=== PATIENT | female | born 1960 | race Caucasian/White ===

== ENCOUNTER 2018-06-06 14:11 | Emergency (ER) | payer OTHER ==
--- NOTE | 2018-06-06 15:05 | Emergency Department Report ---
Blank Doc - Documentation Documentation: 58 y o female presents to ED complaining of prod cough, difficulty to breathe x 2 weeks pmh of HTN,DM on meds cxr ordered [facility] evaluate
--- NOTE | 2018-06-06 16:26 | XRay Report ---
PROCEDURE: XR CHEST ROUTINE 2V TECHNIQUE: Frontal and lateral views of the chest HISTORY: cough COMPARISONS: None. FINDINGS: The cardiomediastinal silhouette is normal in appearance. The lungs are clear without focal consolida tion. No pleural effusion or pneumothorax. No acute bony or soft tissue abnormality. IMPRESSION: No acute cardiopulmonary disease. This document is electronically signed by Lucy Delgadillo MD., June 06 2018 04:24:05 PM ET
--- NOTE | 2018-06-06 17:41 | Emergency Department Report ---
- General Chief Complaint: Upper Respiratory Infection Stated Complaint: COUGH Time Seen by Provider: 06/06/18 14:32 Source: patient Mode of arrival: Ambulatory Limitations: Language Barrier - History of Present Illness MD Complaint: cough, rhinorrhea, nasal congestion -: Gradual, week(s) (2) Severity: mild Quality: dull Consistency: constant Improves With: nothing Worsens With: nothing Associated Symptoms: rhinorrhea, nasal congestion, sore throat, cough. denies: myalgias, diaphoresis, headache, chest pain, shortness of breath, abdominal pain, vomiting, diarrhea, right sweats, weight loss, epistaxis, hoarseness - Related Data Previous Rx's Medication Instructions Recorded Last Taken Type ALBUTEROL Inhaler (OR & NICU) 1 puff IH Q4-6H PRN #1 inha 06/06/18 Unknown Rx [ProAir HFA Inhaler] Amoxicillin 500 mg PO QID #40 capsule 06/06/18 Unknown Rx guaiFENesin/CODEINE [Robitussin AC] 5 ml PO Q6H PRN #120 ml 06/06/18 Unknown Rx predniSONE [Deltasone] 50 mg PO QDAY #5 tab 06/06/18 Unknown Rx Allergies Allergy/AdvReac Type Severity Reaction Status Date / Time No Known Allergies Allergy Unverified 06/06/18 14:16 ED Review of Systems ROS: Stated complaint: COUGH Other details as noted in HPI Constitutional: denies: chills, fever Eyes: denies: eye pain, eye discharge, vision change ENT: denies: ear pain, throat pain Respiratory: cough. denies: shortness of breath, wheezing Cardiovascular: denies: chest pain, palpitations Endocrine: no symptoms reported Gastrointestinal: denies: abdominal pain, nausea, diarrhea Genitourinary: denies: urgency, dysuria, discharge Musculoskeletal: denies: back pain, joint swelling, arthralgia Skin: denies: rash, lesions Neurological: denies: headache, weakness, paresthesias Psychiatric: denies: anxiety, depression Hematological/Lymphatic: denies: easy bleeding, easy bruising ED Past Medical Hx - Past Medical History Previous Medical History?: Yes Hx Hypertension: Yes Hx Diabetes: Yes Hx Dementia: Yes Additional medical history: CHOLESTEROL - Surgical History Past Surgical History?: No - Social History Smoking Status: Never Smoker Substance Use Type: None - Medications Home Medications: Home Medications Medication Instructions Recorded Confirmed Last Taken Type ALBUTEROL Inhaler (OR & NICU) 1 puff IH Q4-6H PRN #1 inha 06/06/18 Unknown Rx [ProAir HFA Inhaler] Amoxicillin 500 mg PO QID #40 capsule 06/06/18 Unknown Rx guaiFENesin/CODEINE [Robitussin AC] 5 ml PO Q6H PRN #120 ml 06/06/18 Unknown Rx predniSONE [Deltasone] 50 mg PO QDAY #5 tab 06/06/18 Unknown Rx ED Physical Exam - General Limitations: Language Barrier General appearance: alert, in no apparent distress - Head Head exam: Present: atraumatic, normocephalic - Eye Eye exam: Present: normal appearance, PERRL, EOMI. Absent: scleral icterus, conjunctival injection Pupils: Present: normal accommodation - ENT ENT exam: Present: normal exam, normal orophraynx, mucous membranes moist, TM's normal bilaterally, other (nasal congestion and swelling. Sinus pressure) - Neck Neck exam: Present: normal inspection - Respiratory Respiratory exam: Present: normal lung sounds bilaterally, rhonchi. Absent: respiratory distress, chest wall tenderness, accessory muscle use, decreased breath sounds - Cardiovascular Cardiovascular Exam: Present: regular rate, normal rhythm. Absent: systolic murmur, diastolic murmur, rubs, gallop - GI/Abdominal GI/Abdominal exam: Present: soft, normal bowel sounds. Absent: tenderness, guarding, hyperactive bowel sounds, organomegaly, mass, bruit - Extremities Exam Extremities exam: Present: normal inspection, full ROM, normal capillary refill - Back Exam Back exam: Present: normal inspection, full ROM. Absent: CVA tenderness (R), CVA tenderness (L), paraspinal tenderness, vertebral tenderness - Neurological Exam Neurological exam: Present: alert, oriented X3, CN II-XII intact, normal gait - Psychiatric Psychiatric exam: Present: normal affect, normal mood - Skin Skin exam: Present: warm, dry, intact, normal color. Absent: rash ED Course Vital Signs 06/06/18 16:22 Temperature 100.0 F H Pulse Rate 96 H Respiratory 18 Rate Blood Pressure 166/97 [Left] O2 Sat by Pulse 97 Oximetry Critical care attestation.: If time is entered above; I have spent that time in minutes in the direct care of this critically ill patient, excluding procedure time. ED Disposition Clinical Impression: Cough, URI (upper respiratory infection), Sore throat Disposition: DC-01 TO HOME OR SELFCARE Is pt being admited?: No Does the pt Need Aspirin: No Condition: Stable Instructions: Cold Symptoms (ED), Acute Cough (ED) Referrals: EL MART MD [Primary Care Provider] - 3-5 Days
[2018-06-06 18:09] VITALS: BP 154/92
== END 2018-06-06 18:09 | disposition home or self-care (01) ==
LOC: ED 14:11
DX: R05 Cough (principal); J06.9 Acute upper respiratory infection, unspecified; J02.9 Acute pharyngitis, unspecified; I10 Essential (primary) hypertension; E11.9 Type 2 diabetes mellitus without complications; E78.00 Pure hypercholesterolemia, unspecified; F03.90 Unspecified dementia, unspecified severity, without behavioral disturbance, psychotic disturbance, mood disturbance, and anxiety
CPT/HCPCS: 71046; 99283

== ENCOUNTER 2018-07-23 13:45 | Inpatient (IN) | payer OTHER ==
[2018-07-23] MEDS ORDERED: ASPIRIN PO ONE (14:18)
--- NOTE | 2018-07-23 14:20 | Emergency Department Report ---
Chief Complaint: Chest Pain Stated Complaint: CHEST PAIN Time Seen by Provider: 07/23/18 14:16 - HPI History of Present Illness: This is a 58 y.o. F. that presents to the ER with chest pain x 2 days. Reports pressure that is intermittent. PMH HTN and DM - Exam Vital Signs: Vital Signs 07/23/18 14:16 Temperature 97.5 F L Pulse Rate 69 Respiratory 20 Rate Blood Pressure 143/97 O2 Sat by Pulse 100 Oximetry MSE screening note: Focused history and physical exam performed. Due to findings the following was ordered: This initial assessment/diagnostic orders/clinical plan/treatment(s) is/are subject to change based on patient's health status, clinical progression and re- assessment by fellow clinical providers in the ED. Further treatment and workup at subsequent clinical providers discretion. Patient/guardians urged not to elope from the ED as their condition may be serious if not clinically assessed and managed. Initial orders include: 1- Patient sent to ACC for further evaluation and treatment 2- Labs, ekg, and CXR ED Disposition for MSE Condition: Stable
[2018-07-23 14:47] LABS: Basophils # (Auto) 0.1 K/mm3 (0.0-0.1); Basophils % (Auto) 0.8 % (0.0-1.8); Eosinophils # (Auto) 0.2 K/mm3 (0.0-0.4); Hematocrit 40.1 % (30.3-42.9); Hemoglobin 13.5 gm/dl (10.1-14.3); Mean Corpuscular HGB Conc 34 % (30-34); Mean Corpuscular Volume 95 fl (79-97); Monocytes # (Auto) 0.6 K/mm3 (0.0-0.8); Monocytes % (Auto) 8.9 % (0.0-7.3); Platelet Count 249 K/mm3 (140-440); Red Blood Count 4.23 M/mm3 (3.65-5.03); Red Cell Distribution Width 12.9 % (13.2-15.2)
[2018-07-23 15:04] LABS: BUN/Creatinine Ratio 22; Blood Urea Nitrogen 11 mg/dL (7-17); Calcium 9.3 mg/dL (8.4-10.2); Hemolysis Index 9
--- NOTE | 2018-07-23 15:11 | XRay Report ---
ROUTINE CHEST, TWO VIEWS: HISTORY: chest pain. The trachea, heart, mediastinal contour, lung batres and bony thorax are unremarkable. IMPRESSION: Unremarkable chest x-ray. No change since 06/06/18.
--- NOTE | 2018-07-23 15:34 | Emergency Department Report ---
ED Chest Pain HPI - General Chief Complaint: Chest Pain Stated Complaint: CHEST PAIN Time Seen by Provider: 07/23/18 14:16 Source: family, systems analyst Mode of arrival: Ambulatory Limitations: Language Barrier - History of Present Illness Initial Comments: 58-year-old female presents to ED with complaint of chest pain 2 days. Pain is located in the left chest, described as a pressure-like pain, nonradiating. He reports mild shortness of breath and cough. Denies fever, leg pain, or swelling. No associated nausea, vomiting, diaphoresis. Patient reports history of hypertension, diabetes, hypercholesterolemia. No history of stress test in the past. MD Complaint: chest pain -: days(s) (2) Onset: during rest Pain Location: left chest Pain Radiation: none Severity: moderate Quality: pressure Consistency: intermittent Improves With: nothing Worsens With: nothing re: dyspnea. denies: nausea, vomting, diaphoresis Other Symptoms: cough. denies: leg swelling Treatments Prior to Arrival: aspirin - Related Data Home Medications Medication Instructions Recorded Confirmed Last Taken Lisinopril [Zestril TAB] 10 mg PO QDAY 07/23/18 07/23/18 07/23/18 Metformin HCl [Glucophage] 1,000 mg PO BID 07/23/18 07/23/18 07/23/18 Pravastatin [Pravachol] 40 mg PO QHS 07/23/18 07/23/18 07/23/18 Previous Rx's Medication Instructions Recorded Last Taken Type ALBUTEROL Inhaler (OR & NICU) 1 puff IH Q4-6H PRN #1 inha 06/06/18 07/23/18 Rx [ProAir HFA Inhaler] Allergies Allergy/AdvReac Type Severity Reaction Status Date / Time No Known Allergies Allergy Verified 07/23/18 14:00 Heart Score - HEART Score History: Slightly suspicious EKG: Normal Age: 45-65 Risk factors: > 3 risk factors or hx of atherosclerotic disease Troponin: < normal limit HEART Score: 3 ED Review of Systems ROS: Stated complaint: CHEST PAIN Other details as noted in HPI Comment: All other systems reviewed and negative Constitutional: denies: chills, fever Respiratory: cough, shortness of breath Cardiovascular: chest pain Gastrointestinal: denies: nausea, vomiting Musculoskeletal: other (denies leg pain and swelling) ED Past Medical Hx - Past Medical History Hx Hypertension: Yes Hx Diabetes: Yes Hx Dementia: Yes Additional medical history: CHOLESTEROL - Social History Smoking Status: Never Smoker Substance Use Type: None - Medications Home Medications: Home Medications Medication Instructions Recorded Confirmed Last Taken Type ALBUTEROL Inhaler (OR & NICU) 1 puff IH Q4-6H PRN #1 inha 06/06/18 07/23/18 07/23/18 Rx [ProAir HFA Inhaler] Lisinopril [Zestril TAB] 10 mg PO QDAY 07/23/18 07/23/18 07/23/18 History Metformin HCl [Glucophage] 1,000 mg PO BID 07/23/18 07/23/18 07/23/18 History Pravastatin [Pravachol] 40 mg PO QHS 07/23/18 07/23/18 07/23/18 History ED Physical Exam - General Limitations: Language Barrier General appearance: alert, in no apparent distress - Head Head exam: Present: atraumatic, normocephalic - Eye Eye exam: Present: normal appearance - ENT ENT exam: Present: mucous membranes moist - Neck Neck exam: Present: normal inspection - Respiratory Respiratory exam: Present: normal lung sounds bilaterally. Absent: respiratory distress - Cardiovascular Cardiovascular Exam: Present: regular rate, normal rhythm - GI/Abdominal GI/Abdominal exam: Present: soft. Absent: distended, tenderness - Extremities Exam Extremities exam: Present: normal inspection. Absent: pedal edema, calf tenderness - Neurological Exam Neurological exam: Present: alert, oriented X3, CN II-XII intact. Absent: motor sensory deficit - Psychiatric Psychiatric exam: Present: normal affect, normal mood - Skin Skin exam: Present: warm, dry, intact, normal color ED Course Vital Signs 07/23/18 07/23/18 14:16 16:04 Temperature 97.5 F L Pulse Rate 69 Respiratory 20 16 Rate Blood Pressure 143/97 O2 Sat by Pulse 100 Oximetry ED Medical Decision Making - Lab Data Result diagrams: 07/23/18 14:27 07/23/18 14:27 - EKG Data -: EKG Interpreted by Fl EKG shows normal: sinus rhythm, axis, intervals, QRS complexes, ST-T waves Rate: normal - EKG Data Interpretation: no acute changes - Radiology Data Radiology results: report reviewed, image reviewed - Medical Decision Making 58 yo F w/ hx of HTN, diabetes, hypercholesterolemia presents to ED with 2 day hx of intermittent chest pain. EKG unremarkable, trop negative, CXR normal. Pt given aspirin by EMS. No chest pain at this time. Due to risk factors, will admit for further workup. - Differential Diagnosis ACS, pneumonia, Critical Care Time: Yes Critical care time in (mins) excluding proc time.: 35 Critical care attestation.: If time is entered above; I have spent that time in minutes in the direct care of this critically ill patient, excluding procedure time. Critical Care Time: 35 min ED Disposition Clinical Impression: Chest pain Disposition: DC-09 OP ADMIT IP TO THIS HOSP Is pt being admited?: Yes Condition: Stable Instructions: Chest Pain (ED) Referrals: EL MART MD [Primary Care Provider] - 3-5 Days Time of Disposition: 15:51
[2018-07-23] MEDS ORDERED: PROVENTIL IH PRN (15:45)
[2018-07-23] MEDS ORDERED: NITROSTAT SL PRN (15:45)
[2018-07-23] MEDS ORDERED: BABY ASPIRIN PO STA (15:45)
[2018-07-23] MEDS ORDERED: ZOFRAN IV PRN (15:45)
[2018-07-23] MEDS ORDERED: TYLENOL PO PRN (15:45)
[2018-07-23] MEDS ORDERED: SODIUM CHLORIDE FLUSH SYRINGE 10 ML IV PRN ×2 (15:45)
--- NOTE | 2018-07-23 15:55 | History and Physical Report ---
History of Present Illness Chief complaint: My chest hurts History of present illness: 58 YO Female with HTN, HLD, DM, Dementia presents to ED for evaluation. Pt states that she has experienced pain in her chest over the past 2 days with worsening symptoms over the past 12 hours. Pt states that pain is 5-7/10, intermittent, localized to the left chest, crushing in nature, not worsened with exertion, not relieved with rest, associated with shortness of breath as dry cough. Pt acknowledges dypsnea with exertion, decreased exercise tolerance. EMS notified, and upon arrival the patient was found to be in distress. Pt transported to [facility]. Pt seen and evaluated in ED. Pt seen and evaluated in ED and found to have Angina as well as symptoms consistent with Diastolic CHF. Pt admitted to telemetry. Cardiology consulted in ED. Pt denies fever, chills, palpitations, NVD, Trauma, BRBPR, productive cough, prolonged travel/immobility, unilateral leg swelling, calf pain, individual/family history of DVT/PE/Blood Clotting Disorders, skin rash, or recent ill contacts. No prior admissions for review. All listed medication reconciled at time of admission. Past History Past Medical History: diabetes, hypertension, hyperlipidemia Past Surgical History: No surgical history, Other (reviewed) Social history: single, lives with family. denies: smoking, alcohol abuse, prescription drug abuse Family history: hypertension Medications and Allergies Allergies Allergy/AdvReac Type Severity Reaction Status Date / Time No Known Allergies Allergy Verified 07/23/18 14:00 Home Medications Medication Instructions Recorded Confirmed Last Taken Type ALBUTEROL Inhaler (OR & NICU) 1 puff IH Q4-6H PRN #1 inha 06/06/18 07/23/18 07/23/18 Rx [ProAir HFA Inhaler] Lisinopril [Zestril TAB] 10 mg PO QDAY 07/23/18 07/23/18 07/23/18 History Metformin HCl [Glucophage] 1,000 mg PO BID 07/23/18 07/23/18 07/23/18 History Pravastatin [Pravachol] 40 mg PO QHS 07/23/18 07/23/18 07/23/18 History Active Meds: Active Medications Acetaminophen (Tylenol) 650 mg PO Q4H PRN PRN Reason: Pain MILD(1-3)/Fever >100.5/SALDIVAR Albuterol (Proventil) 2.5 mg IH Q4HRT PRN PRN Reason: Shortness Of Breath Famotidine (Pepcid) 10 mg PO BID [facility] Nitroglycerin (Nitrostat) 0.4 mg SL Q5M PRN PRN Reason: Chest Pain Ondansetron HCl (Zofran) 4 mg IV Q8H PRN PRN Reason: Nausea And Vomiting Prednisone (Deltasone) 50 mg PO QDAY ALEYDA Sodium Chloride (Sodium Chloride Flush Syringe 10 Ml) 10 ml IV BID ALEYDA Sodium Chloride (Sodium Chloride Flush Syringe 10 Ml) 10 ml IV PRN PRN PRN Reason: LINE FLUSH Sodium Chloride (Sodium Chloride Flush Syringe 10 Ml) 10 ml IV PRN PRN PRN Reason: LINE FLUSH Review of Systems Constitutional: no weight loss, no weight gain, no fever, no chills Ears, nose, mouth and throat: no ear pain, no ear discharge, no tinnitis, no decreased hearing, no nose pain Breasts: no change in shape, no swelling, no mass Cardiovascular: chest pain, shortness of breath, dyspnea on exertion, decreased exercise tolerance, no orthopnea, no palpitations, no rapid/irregular heart beat Respiratory: no cough, no cough with sputum, no excessive sputum, no hemoptysis Gastrointestinal: no abdominal pain, no nausea, no vomiting, no diarrhea Genitourinary Female: no pelvic pain, no flank pain, no menorrhagia, no dysuria, no urinary frequency Rectal: no pain, no incontinence, no bleeding Musculoskeletal: no neck stiffness, no neck pain, no shooting arm pain, no arm numbness/tingling, no low back pain Integumentary: no rash, no pruritis, no redness, no sores, no wounds Neurological: no transient paralysis, no paralysis, no weakness, no parathesias, no numbness, no tingling Psychiatric: no anxiety, no memory loss, no change in sleep habits, no sleep disturbances, no insomnia, no hypersomnia Endocrine: no cold intolerance, no heat intolerance, no polyphagia, no excessive thirst, no polydipsia, no polyuria Hematologic/Lymphatic: no easy bruising, no easy bleeding, no lymphadenopathy, no lymphedema Allergic/Immunologic: no urticaria, no allergic rhinitis, no wheezing, no anaphylaxis, no angioedema Exam - Constitutional Vitals: Temp Pulse Resp BP Pulse Ox 97.5 F L 69 20 143/97 100 07/23/18 14:16 07/23/18 14:16 07/23/18 14:16 07/23/18 14:16 07/23/18 14:16 General appearance: Present: mild distress - EENT Eyes: Present: PERRL ENT: hearing intact, clear oral mucosa - Neck Neck: Present: supple, normal ROM - Respiratory Respiratory effort: normal Respiratory: bilateral: CTA - Cardiovascular Heart Sounds: Present: S1 & S2. Absent: rub, click - Extremities Extremities: pulses symmetrical, No edema Peripheral Pulses: within normal limits - Abdominal General gastrointestinal: Present: soft, non-tender, non-distended, normal bowel sounds Female genitourinary: Present: normal - Integumentary Integumentary: Present: clear, warm, dry - Musculoskeletal Musculoskeletal: gait normal, strength equal bilaterally - Psychiatric Psychiatric: appropriate mood/affect, intact judgment & insight - Neurologic Neurologic: CNII-XII intact, moves all extremities Results - Labs CBC & Chem 7: 07/23/18 14:27 07/23/18 14:27 Labs: Abnormal lab results 07/23/18 07/23/18 Range/Units 14:27 14:27 RDW 12.9 L (13.2-15.2) % Lymph % (Auto) 45.0 H (13.4-35.0) % [place] % (Auto) 8.9 H (0.0-7.3) % Creatinine 0.5 L (0.7-1.2) mg/dL Assessment and Plan - Patient Problems (1) Angina at rest Current Visit: Yes Status: Acute Plan to address problem: Serial cardiac enzymes, ekg, telemetry, cardiology consulted in ED, (2) Diastolic CHF Current Visit: Yes Status: Acute Qualifiers: Heart failure chronicity: acute Qualified Code(s): I50.31 - Acute diastolic (congestive) heart failure Plan to address problem: Admit to telemetry, echo, strict I/O, daily weight, monitor uop q shift, thyroid panel, magnesium level, chest x ray, cardiology consulted in ED. (3) Hypertensive urgency Current Visit: Yes Status: Acute Plan to address problem: monitor bp q shift, IV hydralazine prn sor SBP>155 (4) HLD (hyperlipidemia) Current Visit: Yes Status: Acute Qualifiers: Hyperlipidemia type: mixed hyperlipidemia Qualified Code(s): E78.2 - Mixed hyperlipidemia Plan to address problem: Statin therapy, low cholesterol diet, (5) Diabetes Current Visit: Yes Status: Acute Plan to address problem: ADA diet, insulin, accu check, hypoglycemia protocol (6) DVT prophylaxis Current Visit: Yes Status: Acute Plan to address problem: SCD to BLE while in bed,
[2018-07-23 16:57] LABS: Chol/HDL Ratio 2.72 %
[2018-07-23] MEDS ORDERED: D50W (25GM) Syringe IV PRN (17:11)
[2018-07-23] MEDS ORDERED: APRESOLINE IV PRN (17:24)
[2018-07-23] MEDS ORDERED: APRESOLINE ONE (17:46)
[2018-07-23 20:48] LABS: Free T4 (Free Thyroxine) 0.93 ng/dL (0.76-1.46)
[2018-07-23] MEDS ORDERED: PRAVACHOL PO SCH (22:00)
[2018-07-23] MEDS: SODIUM CHLORIDE FLUSH SYRINGE 10 ML IV SCH (22:12)
[2018-07-23] MEDS: HumuLIN R SUB-Q SCH (22:12)
[2018-07-23] MEDS: PEPCID PO SCH (22:12)
[2018-07-24 06:20] LABS: Hematocrit 37.1 % (30.3-42.9); Hemoglobin 12.6 gm/dl (10.1-14.3); Mean Corpuscular HGB Conc 34 % (30-34); Mean Corpuscular Volume 96 fl (79-97); Platelet Count 241 K/mm3 (140-440); Red Blood Count 3.87 M/mm3 (3.65-5.03)
[2018-07-24 06:27] LABS: Basophils % (Auto) 0.7 % (0.0-1.8); Eosinophils # (Auto) 0.3 K/mm3 (0.0-0.4); Lymphocytes # (Auto) 3.1 K/mm3 (1.2-5.4); Lymphocytes % (Auto) 49.7 % (13.4-35.0); Monocytes # (Auto) 0.6 K/mm3 (0.0-0.8); Monocytes % (Auto) 8.8 % (0.0-7.3)
[2018-07-24 06:36] LABS: BUN/Creatinine Ratio 35; Blood Urea Nitrogen 14 mg/dL (7-17); Calcium 9.4 mg/dL (8.4-10.2); Hemolysis Index 4
[2018-07-24] MEDS ORDERED: LEXISCAN IV ONE ×2 (08:45→08:46)
[2018-07-24] MEDS ORDERED: DELTASONE PO SCH (10:00)
[2018-07-24] MEDS ORDERED: ZESTRIL PO SCH (10:00)
--- NOTE | 2018-07-24 11:19 | Consultation ---
History of Present Illness Consult date: 07/24/18 Consult reason: chest pain History of present illness: This is a 58 year old woman who presented with complaints of chest pain thus this cardiac consultation. Patient has a history of hypertension, diabetes and hyperlipidemia. There is no prior cardiac history and she has not have any cardiac workup. Cycled troponins were normal and her ECG is benign, a normal sinus rhythm. She was admitted by the hospitalist team and ordered for a thallium stress test and echocardiogram today. Results are pending. Past History Past Medical History: diabetes, hypertension, hyperlipidemia Past Surgical History: No surgical history Social history: single, lives with family. denies: smoking, alcohol abuse, prescription drug abuse Family history: hypertension Medications and Allergies Allergies Allergy/AdvReac Type Severity Reaction Status Date / Time No Known Allergies Allergy Verified 07/23/18 14:00 Home Medications Medication Instructions Recorded Confirmed Last Taken Type ALBUTEROL Inhaler (OR & NICU) 1 puff IH Q4-6H PRN #1 inha 06/06/18 07/23/18 07/23/18 Rx [ProAir HFA Inhaler] Lisinopril [Zestril TAB] 10 mg PO QDAY 07/23/18 07/23/18 07/23/18 History Metformin HCl [Glucophage] 1,000 mg PO BID 07/23/18 07/23/18 07/23/18 History Pravastatin [Pravachol] 40 mg PO QHS 07/23/18 07/23/18 07/23/18 History Active Meds: Active Medications Acetaminophen (Tylenol) 650 mg PO Q4H PRN PRN Reason: Pain MILD(1-3)/Fever >100.5/SALDIVAR Last Admin: 07/23/18 16:39 Dose: 650 mg Documented by: Albuterol (Proventil) 2.5 mg IH Q4HRT PRN PRN Reason: Shortness Of Breath Dextrose (D50w (25gm) Syringe) 50 ml IV PRN PRN PRN Reason: Hypoglycemia Famotidine (Pepcid) 10 mg PO BID ALEYDA Last Admin: 07/23/18 22:12 Dose: 10 mg Documented by: Hydralazine HCl (Apresoline) 10 mg IV Q6HR PRN PRN Reason: Hypertension Last Admin: 07/23/18 17:49 Dose: 10 mg Documented by: Insulin Human Regular (Humulin R) 0 units SUB-Q ACHS [facility]; Protocol Last Admin: 07/23/18 22:12 Dose: Not Given Documented by: Lisinopril (Zestril) 10 mg PO QDAY [facility] Ondansetron HCl (Zofran) 4 mg IV Q8H PRN PRN Reason: Nausea And Vomiting Pravastatin Sodium (Pravachol) 40 mg PO QHS [facility] Last Admin: 07/23/18 22:12 Dose: 40 mg Documented by: Prednisone (Deltasone) 50 mg PO QDAY [facility] Sodium Chloride (Sodium Chloride Flush Syringe 10 Ml) 10 ml IV BID [facility] Last Admin: 07/23/18 22:12 Dose: 10 ml Documented by: Sodium Chloride (Sodium Chloride Flush Syringe 10 Ml) 10 ml IV PRN PRN PRN Reason: LINE FLUSH Physical Examination Vital Signs Temp Pulse Resp BP Pulse Ox 97.5 F L 69 20 143/97 100 07/23/18 14:16 07/23/18 14:16 07/23/18 14:16 07/23/18 14:16 07/23/18 14:16 General appearance: no acute distress HEENT: Positive: PERRL Neck: Positive: trachea midline Cardiac: Positive: Reg Rate and Rhythm Lungs: Positive: Normal Breath Sounds Neuro: Positive: Grossly Intact Extremities: Absent: edema Results 07/24/18 05:56 07/24/18 05:56 Lipids 07/23/18 Range/Units 15:52 Triglycerides 82 (2-149) mg/dL Cholesterol 199 (50-199) mg/dL HDL Cholesterol 73 H (40-59) mg/dL Cholesterol/HDL Ratio 2.72 % CBC 07/23/18 07/24/18 Range/Units 14:27 05:56 WBC 6.8 6.0 (4.5-11.0) K/mm3 RBC 4.23 3.87 (3.65-5.03) M/mm3 Hgb 13.5 12.6 (10.1-14.3) gm/dl Hct 40.1 37.1 (30.3-42.9) % Plt Count 249 241 (140-440) K/mm3 Lymph # 3.0 3.1 (1.2-5.4) K/mm3 [place] # 0.6 0.6 (0.0-0.8) K/mm3 Eos # 0.2 0.3 (0.0-0.4) K/mm3 Baso # 0.1 0.0 (0.0-0.1) K/mm3 Comprehensive Metabolic Panel 07/23/18 07/24/18 Range/Units 14:27 05:56 Sodium 139 145 (137-145) mmol/L Potassium 4.4 4.8 (3.6-5.0) mmol/L Chloride 99.6 108.5 H (98-107) mmol/L Carbon Dioxide 27 26 (22-30) mmol/L BUN 11 14 (7-17) mg/dL Creatinine 0.5 L 0.4 L (0.7-1.2) mg/dL Glucose 99 109 H (65-100) mg/dL Calcium 9.3 9.4 (8.4-10.2) mg/dL Assessment and Plan Chest pain Hypertension Diabetes Hyperlipidemia Stress thallium test and echocardiogram done today. Results are pending.
[2018-07-24] MEDS: SODIUM CHLORIDE FLUSH SYRINGE 10 ML IV SCH (13:42)
[2018-07-24] MEDS: PEPCID PO SCH (13:42)
[2018-07-24 13:48] VITALS: BP 122/78
[2018-07-24] MEDS: HumuLIN R SUB-Q SCH ×2 (13:54→13:56)
--- NOTE | 2018-07-24 13:54 | Discharge Summary ---
Providers - Providers Date of Admission: 07/23/18 15:45 Date of discharge: 07/24/18 Attending physician: TORITO JONAS 07/24/18 10:26 Consult to Physician [CONS] Routine Comment: Consulting Provider: EVIN FUENTES Physician Instructions: Reason For Exam: cp Primary care physician: [facility], Hospitalization Reason for admission: cp Condition: Stable Hospital course: This is a 58 year old woman who presented with complaints of chest pain. Pt stated that she has experienced pain in her chest over the past 2 days with worsening symptoms over the past [address] [employer] Pt stated that pain was 5-7/10, intermittent, localized to the left chest, crushing in nature, not worsened with exertion, not relieved with rest, associated with shortness of breath as dry cough. Pt acknowledged dypsnea with exertion, decreased exercise tolerance. Patient has a history of hypertension, diabetes and hyperlipidemia. There is no prior cardiac history and she has not have any cardiac workup. Cycled troponins were normal and her ECG is benign, a normal sinus rhythm. BNP within normal limits. She was admitted with diagnosis of chest pain and was seen by cardiology in consultation. Echocardiogram revealed global left ventricular wall motion and contractility within normal limits with an EF of 55-60%. Patient also underwent a stress thallium and if found to be negative she will be discharged home. Etiology of chest pain likely GERD. Dedicated discharge time 32 minutes. Disposition: DC-01 TO HOME OR SELFCARE Time spent for discharge: 32 - Discharge Diagnoses (1) GERD (gastroesophageal reflux disease) Status: Acute (2) Chest pain Status: Acute (3) Diabetes Status: Acute (4) HLD (hyperlipidemia) Status: Acute Qualifiers: Hyperlipidemia type: mixed hyperlipidemia Qualified Code(s): E78.2 - Mixed hyperlipidemia Core Measure Documentation - Palliative Care Palliative Care/ Comfort Measures: Not Applicable - Core Measures Any of the following diagnoses?: none Exam - Constitutional Vitals: Temp Pulse Resp BP Pulse Ox 97.9 F 80 14 122/78 99 07/24/18 07:51 07/24/18 13:41 07/24/18 07:51 07/24/18 13:41 07/24/18 07:51 General appearance: Present: no acute distress, well-nourished - EENT Eyes: Present: PERRL ENT: hearing intact, clear oral mucosa - Neck Neck: Present: supple, normal ROM - Respiratory Respiratory effort: normal Respiratory: bilateral: CTA - Cardiovascular Heart Sounds: Present: S1 & S2. Absent: rub, click - Extremities Extremities: pulses symmetrical, No edema Peripheral Pulses: within normal limits - Abdominal General gastrointestinal: Present: soft, non-tender, non-distended, normal bowel sounds Female genitourinary: Present: normal - Integumentary Integumentary: Present: clear, warm, dry - Musculoskeletal Musculoskeletal: gait normal, strength equal bilaterally - Psychiatric Psychiatric: appropriate mood/affect, intact judgment & insight - Neurologic Neurologic: CNII-XII intact, moves all extremities Plan Activity: no restrictions Weight Bearing Status: Full Weight Bearing Diet: regular Follow up with: EL MART MD [Primary Care Provider] - 3-5 Days Prescriptions: Pravastatin [Pravachol] 40 mg PO QHS #30 tablet Lisinopril [Zestril TAB] 10 mg PO QDAY #30 tablet
--- NOTE | 2018-07-25 02:54 | Treadmill Report ---
INDICATION: Chest pain. ORDERING PHYSICIAN: Petr Lee MD FINDINGS: There is no scintigraphic evidence of myocardial ischemia. The left ventricle is normal in size and systolic function. The left ventricular ejection fraction is measured at greater than 60% with normal wall motion and wall thickening. CONCLUSION: Normal perfusion scan. JOB# [id number] UMM/NTS
== END 2018-07-24 16:10 | disposition home or self-care (01) | DRG 391 ==
LOC: ED 13:45 → 4A 15:45
PROVIDERS: ADMIT Internal Medicine; ATTEND Hospitalist
DX: K21.9 Gastro-esophageal reflux disease without esophagitis (principal); I50.31 Acute diastolic (congestive) heart failure; I16.0 Hypertensive urgency; I11.0 Hypertensive heart disease with heart failure; E78.5 Hyperlipidemia, unspecified; E78.2 Mixed hyperlipidemia; E78.00 Pure hypercholesterolemia, unspecified; F03.90 Unspecified dementia, unspecified severity, without behavioral disturbance, psychotic disturbance, mood disturbance, and anxiety; E11.9 Type 2 diabetes mellitus without complications; Z82.49 Family history of ischemic heart disease and other diseases of the circulatory system; Z79.51 Long term (current) use of inhaled steroids; Z79.899 Other long term (current) drug therapy; Z79.84 Long term (current) use of oral hypoglycemic drugs
CPT/HCPCS: 36415; 71046; 78452; 80048; 80061; 82962; 83735; 83880; 84439; 84443; 84484; 85025; 93005; 93010; 93017; 93306; 96374; G0378; A9270-GY; A9502; J0360; J2785; J7512

== ENCOUNTER 2020-04-28 11:09 | Emergency (ER) | payer OTHER ==
[2020-04-28] MEDS ORDERED: ALUM-MAG HYDROXIDE-SIMETHICONE 200-200-20MG/5ML ORAL LIQD 30 ML PO ONE (11:47)
[2020-04-28] MEDS ORDERED: FAMOTIDINE 20 MG/2 ML INJ IV ONE (11:47)
[2020-04-28] MEDS ORDERED: LIDOCAINE VISCOUS 2% 15 ML ORAL LIQD PO ONE (11:47)
--- NOTE | 2020-04-28 11:52 | Emergency Department Report ---
ED Chest Pain HPI - General Chief Complaint: High BP Stated Complaint: SOB Time Seen by Provider: 04/28/20 11:34 Source: patient, EMS Mode of arrival: Stretcher Limitations: Language Barrier (E[place]ian abstract clerk utilized) - History of Present Illness Initial Comments: 60-year-old female with a past medical history of GERD hypertension, diabetes, and hyperlipidemia as per previous medical record presents to the with complaints of epigastric discomfort/pressure with shortness of breath. Patient feels like the epigastric pressure is making it more difficult for her to breathe. His pressure increases with lying supine and with sitting and feels be tter with standing upward. Pain discomfort radiates to the chest. She denies nausea, vomiting, or diaphoresis. Decreased appetite reported. With p.o. intake her shortness of breath increases with she denies dysphagia or diet aphasia pain. He has had previous MASTER MACHINIST surgery in the past but denies other abdominal surgeries. She currently takes lisinopril 20 mg and unknown stomach medication. Patient complains of heaviness to her head with dizziness without headache/pain. Patient looks uncomfortable pointing to epigastric area complaining of pressure with shortness of breath. Saturation 99% on room air with hypertension and heart rate of 99 noted on the monitor. Patient last took her medications last night however, she typically takes them in the a.m. Patient unable to provide a list of her current medication. She apparently seen at [facility] yesterday and discharged on Toradol. As per medical record review patient was seen here June 2018 and had a negative stress test, EF of 50 to 60%, and diagnosis of GERD. - Related Data Home Medications Medication Instructions Recorded Confirmed Last Taken Metformin HCl [Glucophage] 1,000 mg PO BID 07/23/18 07/23/18 07/23/18 Previous Rx's Medication Instructions Recorded Last Taken Type Albuterol Mdi (or & Nicu Only) 1 puff IH Q4-6H PRN #1 inha 06/06/18 07/23/18 Rx [ProAir HFA Inhaler] Pravastatin [Pravachol] 40 mg PO QHS #30 tablet 07/24/18 Unknown Rx lisinopriL [Zestril TAB] 10 mg PO QDAY #30 tablet 07/24/18 Unknown Rx HYDROcodone/APAP 5-325 [[place] 1 each PO Q6HR PRN #15 tablet 04/28/20 Unknown Rx 5/325] Mag Hydrox/Aluminum Hyd/Simeth 20 ml PO QID PRN #1 bottle 04/28/20 Unknown Rx [Maalox Advanced Suspension] Ondansetron [Zofran Odt] 4 mg PO Q8HR PRN #20 tab.rapdis 04/28/20 Unknown Rx Pantoprazole [Protonix TAB] 20 mg PO QDAY #30 tablet. 04/28/20 Unknown Rx Allergies Allergy/AdvReac Type Severity Reaction Status Date / Time No Known Allergies Allergy Verified 07/23/18 14:00 Heart Score - HEART Score History: Slightly suspicious EKG: Normal Age: 45-65 Risk factors: > 3 risk factors or hx of atherosclerotic disease Troponin: < normal limit HEART Score: 3 ED Review of Systems ROS: Stated complaint: SOB Other details as noted in HPI Comment: All other systems reviewed and negative ED Past Medical Hx - Past Medical History Hx Hypertension: Yes Hx Diabetes: Yes Hx GERD: Yes Hx Dementia: Yes Additional medical history: Hyperlipidemia, - Surgical History Hx Breast Surgery: No - Social History Smoking Status: Never Smoker - Medications Home Medications: Home Medications Medication Instructions Recorded Confirmed Last Taken Type Albuterol Mdi (or & Nicu Only) 1 puff IH Q4-6H PRN #1 inha 06/06/18 07/23/18 07/23/18 Rx [ProAir HFA Inhaler] Metformin HCl [Glucophage] 1,000 mg PO BID 07/23/18 07/23/18 07/23/18 History Pravastatin [Pravachol] 40 mg PO QHS #30 tablet 07/24/18 Unknown Rx lisinopriL [Zestril TAB] 10 mg PO QDAY #30 tablet 07/24/18 Unknown Rx HYDROcodone/APAP 5-325 [[place] 1 each PO Q6HR PRN #15 tablet 04/28/20 Unknown Rx 5/325] Mag Hydrox/Aluminum Hyd/Simeth 20 ml PO QID PRN #1 bottle 04/28/20 Unknown Rx [Maalox Advanced Suspension] Ondansetron [Zofran Odt] 4 mg PO Q8HR PRN #20 tab.rapdis 04/28/20 Unknown Rx Pantoprazole [Protonix TAB] 20 mg PO QDAY #30 tablet. 04/28/20 Unknown Rx ED Physical Exam - General Limitations: Language Barrier - Other Other exam information: General: Anxious Head: Atraumatic Eyes: normal appearance ENT: Moist mucous membranes Neck: Normal appearance, no midline tenderness Chest: Clear to auscultation bilaterally CV: Regular rate and rhythm Abdomen: Soft, normal bowel sounds, nontender, nondistended, no rebound or guarding Back: Normal inspection Extremity: Normal inspection, full range of motion Neuro: Alert O x 3, no facial asymmetry, speech clear, no gross motor sensory deficit Psych: Anxious Skin: No rash ED Course Vital Signs 04/28/20 04/28/20 04/28/20 11:29 12:30 13:30 Temperature 98.1 F Pulse Rate 97 H 92 H 80 Respiratory 16 Rate Blood Pressure 194/109 171/104 155/93 [Right] O2 Sat by Pulse 100 98 99 Oximetry 04/28/20 04/28/20 14:30 15:50 Temperature Pulse Rate 89 86 Respiratory Rate Blood Pressure 199/115 154/93 [Right] O2 Sat by Pulse 100 99 Oximetry - Reevaluation(s) Reevaluation #1: 04/28/20 15:56 Patient had initial relief after GI cocktail of viscous lidocaine and Maalox with improvement in blood pressure Pain return once again patient complained of epigastric discomfort and shortness of breath with elevation in BP. Patient received 4 morphine and 4 Zofran with improvement in symptoms. Patient resting in blood pressure once again improved 04/28/20 18:11 Patient tolerated apple juice and lizeth crackers without difficulty and states that she has now able to tolerate p.o. intake without discomfort since treatment provided in ED ED Medical Decision Making - Lab Data Result diagrams: 04/28/20 12:04 04/28/20 12:04 Lab Results 04/28/20 04/28/20 04/28/20 Range/Units 12:04 12:04 12:04 WBC 8.4 (4.5-11.0) K/mm3 RBC 4.60 (3.65-5.03) M/mm3 Hgb 14.7 H (10.1-14.3) gm/dl Hct 42.7 (30.3-42.9) % MCV 93 (79-97) fl MCH 32 (28-32) pg MCHC 35 H (30-34) % RDW 12.3 L (13.2-15.2) % Plt Count 286 (140-440) K/mm3 Lymph % (Auto) 17.4 (13.4-35.0) % [place] % (Auto) 5.1 (0.0-7.3) % Eos % (Auto) 0.2 (0.0-4.3) % Baso % (Auto) 0.5 (0.0-1.8) % Lymph # (Auto) 1.5 (1.2-5.4) K/mm3 Pitt # (Auto) 0.4 (0.0-0.8) K/mm3 Eos # (Auto) 0.0 (0.0-0.4) K/mm3 Baso # (Auto) 0.0 (0.0-0.1) K/mm3 Seg Neutrophils % 76.8 H (40.0-70.0) % Seg Neutrophils # 6.4 (1.8-7.7) K/mm3 PT (12.2-14.9) Sec. INR (0.87-1.13) APTT (24.2-36.6) Sec. Sodium 132 L (137-145) mmol/L Potassium 4.7 (3.6-5.0) mmol/L Chloride 91.2 L (98-107) mmol/L Carbon Dioxide 24 (22-30) mmol/L Anion Gap 22 mmol/L BUN 7 (7-17) mg/dL Creatinine 0.4 L (0.6-1.2) mg/dL Estimated GFR > 60 ml/min BUN/Creatinine Ratio 18 % Glucose 147 H (65-100) mg/dL Calcium 9.8 (8.4-10.2) mg/dL Total Bilirubin 0.40 (0.1-1.2) mg/dL AST 22 (5-40) units/L ALT 18 (7-56) units/L Alkaline Phosphatase 82 (35-129) units/L Troponin T < 0.010 (0.00-0.029) ng/mL NT-Pro-B Natriuret Pep 151.0 (0-900) pg/mL Total Protein 8.9 H (6.3-8.2) g/dL Albumin 4.8 (3.9-5) g/dL Albumin/Globulin Ratio 1.2 % Lipase 52 (13-60) units/L 04/28/20 04/28/20 Range/Units 12:04 16:23 WBC (4.5-11.0) K/mm3 RBC (3.65-5.03) M/mm3 Hgb (10.1-14.3) gm/dl Hct (30.3-42.9) % MCV (79-97) fl MCH (28-32) pg MCHC (30-34) % RDW (13.2-15.2) % Plt Count (140-440) K/mm3 Lymph % (Auto) (13.4-35.0) % Pitt % (Auto) (0.0-7.3) % Eos % (Auto) (0.0-4.3) % Baso % (Auto) (0.0-1.8) % Lymph # (Auto) (1.2-5.4) K/mm3 Pitt # (Auto) (0.0-0.8) K/mm3 Eos # (Auto) (0.0-0.4) K/mm3 Baso # (Auto) (0.0-0.1) K/mm3 Seg Neutrophils % (40.0-70.0) % Seg Neutrophils # (1.8-7.7) K/mm3 PT 12.5 (12.2-14.9) Sec. INR 0.94 (0.87-1.13) APTT 28.1 (24.2-36.6) Sec. Sodium (137-145) mmol/L Potassium (3.6-5.0) mmol/L Chloride (98-107) mmol/L Carbon Dioxide (22-30) mmol/L Anion Gap mmol/L BUN (7-17) mg/dL Creatinine (0.6-1.2) mg/dL Estimated GFR ml/min BUN/Creatinine Ratio % Glucose (65-100) mg/dL Calcium (8.4-10.2) mg/dL Total Bilirubin (0.1-1.2) mg/dL AST (5-40) units/L ALT (7-56) units/L Alkaline Phosphatase (35-129) units/L Troponin T < 0.010 (0.00-0.029) ng/mL NT-Pro-B Natriuret Pep (0-900) pg/mL Total Protein (6.3-8.2) g/dL Albumin (3.9-5) g/dL Albumin/Globulin Ratio % Lipase (13-60) units/L - EKG Data -: EKG Interpreted by Me EKG shows normal: sinus rhythm, ST-T waves (no stemi) Rate: normal - EKG Data When compared to previous EKG there are: no significant change 04/28/20 16: 21 no acute changes on repeat EKG - Radiology Data Radiology results: report reviewed Chest x-ray: No acute finding CT angiogram chest abdomen pelvis: No acute abnormality - Medical Decision Making 60-year-old female presents to the hospital complaining of epigastric discomfort which decreases her appetite and causes her to feel short of breath. Patient had dramatic improvement after initial GI cocktail with improvement of blood pressure and discomfort. Pain recurred after medication wore off but improved again after morphine and Zofran with again improvement in her blood pressure. CT angio chest abdomen and pelvis did not reveal any acute abnormality. Patient has normal sinus EKG x2 without ischemic findings. Negative troponin x2. Patient had negative stress test here 2 years ago patient endorsed that she has had similar epigastric discomfort in the past and takes a stomach medicine prescribed by her primary care doctor. I believe that patient symptoms are GI related. She will be informed to discontinue Toradol. It is unclear if her current "stomach medication". She replaced on a PPI, maalox, Zofran, and [place] for pain as needed. [place] provided prior to discharge Patient provided verbal instructions in her buck[place] language including to stop Toradol Critical Care Time: No Critical care attestation.: If time is entered above; I have spent that time in minutes in the direct care of this critically ill patient, excluding procedure time. ED Disposition Clinical Impression: Epigastric discomfort, Indigestion Disposition: DC-01 TO HOME OR SELFCARE Is pt being admited?: No Does the pt Need Aspirin: No Condition: Stable Instructions: Indigestion Additional Instructions: Take the medication as prescribed. Follow-up with your doctor or doctor/clinic provided. Return if symptoms worsen as indicated by your discharge instructions. Prescriptions: Mag Hydrox/Aluminum Hyd/Simeth [Maalox Advanced Suspension] 20 ml PO QID PRN #1 bottle PRN Reason: Indigestion HYDROcodone/APAP 5-325 [[place] 5/325] 1 each PO Q6HR PRN #15 tablet PRN Reason: Pain Pantoprazole [Protonix TAB] 20 mg PO QDAY #30 tablet. Ondansetron [Zofran Odt] 4 mg PO Q8HR PRN #20 tab.rapdis PRN Reason: Nausea And Vomiting Referrals: BRETT BOWDEN MD [Staff Physician] - 3-5 Days (GI doctor ) PRIMARY CAREMD [Referring] - 3-5 Days Time of Disposition: 18:11
[2020-04-28 12:42] LABS: Basophils % (Auto) 0.5 % (0.0-1.8); Eosinophils % (Auto) 0.2 % (0.0-4.3); Hematocrit 42.7 % (30.3-42.9); Hemoglobin 14.7 gm/dl (10.1-14.3); Lymphocytes # (Auto) 1.5 K/mm3 (1.2-5.4); Lymphocytes % (Auto) 17.4 % (13.4-35.0); Mean Corpuscular HGB Conc 35 % (30-34); Mean Corpuscular Volume 93 fl (79-97); Monocytes # (Auto) 0.4 K/mm3 (0.0-0.8); Monocytes % (Auto) 5.1 % (0.0-7.3); Platelet Count 286 K/mm3 (140-440); Red Cell Distribution Width 12.3 % (13.2-15.2)
[2020-04-28 12:54] LABS: INR 0.94 (0.87-1.13)
[2020-04-28 12:55] LABS: Partial Thromboplastin Time 28.1 Sec. (24.2-36.6)
[2020-04-28 13:01] LABS: Alanine Aminotransferase 18 units/L (7-56); Albumin 4.8 g/dL (3.9-5); Blood Urea Nitrogen 7 mg/dL (7-17); Calcium 9.8 mg/dL (8.4-10.2); Hemolysis Index 7
--- NOTE | 2020-04-28 13:05 | XRay Report ---
CHEST 1 VIEW 04/28/2020 11:51 AM INDICATION / CLINICAL INFORMATION: Shortness of breath. COMPARISON: 07/23/18. FINDINGS: The patient is mildly rotated to the left. SUPPORT DEVICES: None. HEART / MEDIASTINUM: The heart size and pulmonary vasculature are normal. LUNGS / PLEURA: No significant pulmonary or pleural abnormality. No pneumothorax. ADDITIONAL FINDINGS: No significant additional findings. IMPRESSION: No acute abnormality or significant change. Signer Name: Pastor Wilks MD Signed: 04/28/2020 1:00 PM Workstation Name: [id number]
[2020-04-28 13:10] LABS: BUN/Creatinine Ratio 18
--- NOTE | 2020-04-28 14:54 | Cat Scan Report ---
CT angio chest, CT angio abdomen pelvis INDICATION: sob, epigastric discomfort, htn. TECHNIQUE: All CT scans at this location are performed using CT dose reduction for ALARA by means of automated e xposure control. 3 plane MIP and 3-D reconstructions were produced. COMPARISON: None available. FINDINGS: CTA CHEST: The entire thoracic aorta is normal in caliber. No evidence of dissection. No mediastinal, hilar or a xillary adenopathy. No pleural effusion or significant parenchymal disease. No evidence of pulmonary embolus. CTA abdomen pelvis: Abdominal aorta is mildly tortuous but normal in caliber. Celiac axis, SMA, bilateral renal arteries (one on the right and 2 on the left) and LUIS FERNANDO are all patent. Bilateral iliac, common femoral and prox imal deep and superficial femoral arteries are also widely patent. Branches of the visceral arteries appear patent. There is no significant atherosclerosis. CT imaging of the bowel shows no evidence of ischemia. No significant skeletal lesions. IMPRESSION: 1. No significant vascular abnormalities in the chest, abdomen or pelvis. No evidence of pulmonary em bolus. Signer Name: Rafael Phelps MD Signed: 04/28/2020 2:49 PM Workstation Name: [id number]
[2020-04-28] MEDS ORDERED: ONDANSETRON 4 MG/2 ML INJ IV ONE (14:58)
[2020-04-28] MEDS ORDERED: MORPHINE 4 MG/1 ML INJ IV ONE (14:58)
[2020-04-28 15:51] VITALS: BP 154/93
[2020-04-28] MEDS ORDERED: HYDROcodone/ACETAMINOPHEN 5-325 MG TAB PO ONE (18:01)
== END 2020-04-28 19:12 | disposition home or self-care (01) ==
LOC: ED 11:09
DX: R10.13 Epigastric pain (principal); I10 Essential (primary) hypertension; E11.9 Type 2 diabetes mellitus without complications; K21.9 Gastro-esophageal reflux disease without esophagitis; Z79.899 Other long term (current) drug therapy
CPT/HCPCS: 36415; 71045; 71275; 74174; 80053; 83690; 83880; 84484; 85025; 85610; 85730; 93005; 96374; 96375; 99285; J2270; J2405; Q9967